=== PATIENT | male | born 1995 | race African-American/Black ===

== ENCOUNTER 2024-10-24 15:31 | Emergency (ER) | payer OTHER ==
[~2024-10-24] VITALS: Ht 172.7 cm; Wt 73.9 kg
--- NOTE | 2024-10-24 17:36 | HMCIMG ---
LEFT ELBOW RADIOGRAPHS - 3 VIEWS INDICATION: Pain COMPARISON: None FINDINGS: AP, lateral, and oblique views. Nondisplaced transverse radial neck impaction fracture. No significant joint effusion is present. No radiopaque foreign body noted. IMPRESSION: Nondisplaced transverse radial neck impaction fracture.
--- NOTE | 2024-10-24 17:36 | HMCIMG ---
LEFT WRIST RADIOGRAPHS - 3 VIEWS INDICATION: Pain COMPARISON: None FINDINGS: AP, lateral, and oblique views. No evidence for acute fracture or subluxation. Scaphoid bone is intact. Ulnar variance is within normal limits. Carpal alignment is well maintained. No radiopaque foreign body noted. IMPRESSION: No evidence for fracture or dislocation.
--- NOTE | 2024-10-24 18:39 | ERN ---
General Chief Complaint: Arm Swelling/Redness Stated Complaint: POSSIBLE BROKEN FOREARM Time Seen by MD: 15:40 Source: patient History of Present Illness Initial Comments PATIENT IS A 28-YEAR-OLD MALE COMING IN TO BE EVALUATED FOR ARM PAIN. PATIENT STATES THAT HE FELL DOWN EARLIER TODAY WAS DIAGNOSED WITH A RADIAL AND ULNAR FRACTURE AND SENT IN FOR FURTHER EVALUATION. Allergies: Coded Allergies: No Known Allergies (Unverified Allergy, Unknown, 10/24/24) Past Medical History Past Medical History: Asthma Past Surgical History: Appendectomy, Other Surgical History Other: ACL ROS Dictation CONSTITUTIONAL: NO CHILLS, NO FEVER, NO WEAKNESS, NO DIAPHORESIS, NO MALAISE. HEAD/FACE: NO SIGNS OF TRAUMA. EENT: NO EYE PAIN, NO BLURRED VISION, NO TEARING, NO DOUBLE VISION, NO EAR PAIN, NO EAR DISCHARGE, NO NOSE PAIN, NO NASAL CONGESTION, NO THROAT PAIN, NO THROAT SWELLING, NO MOUTH PAIN. RESPIRATORY: NO COUGH, NO ORTHOPNEA, NO SOB, NO STRIDOR, NO WHEEZING. CARDIOVASCULAR: NO CHEST PAIN, NO EDEMA, NO PALPITATIONS, NO SYNCOPE. GASTROINTESTINAL/ABDOMINAL: NO ABDOMINAL PAIN, NO CONSTIPATION, NO DIARRHEA, NO NAUSEA, NO VOMITING. GENITOURINARY: NO ABNORMAL DISCHARGE, NO DYSURIA, NO FREQUENT URINATION, NO HEMATURIA. NO COMPLAINTS OF PAIN IN THE GENITALS. MUSCULOSKELETAL: NO BACK PAIN, NO GOUT, NO JOINT PAIN, NO JOINT SWELLING, NO MUSCLE PAIN, NO MUSCLE STIFFNESS, NO NECK PAIN. INTEGUMENTARY: NO CHANGE IN COLOR, NO CHANGE IN HAIR/NAILS, NO DRYNESS, NO LESION, NO LUMPS, NO RASH. NEUROLOGICAL/PSYCH: NO ANXIETY, NOT DEPRESSED, NO EMOTIONAL PROBLEM, NO HEADACHE, NO NUMBNESS, NO PRE-EXISTING DEFICIT, NO HISTORY OF SEIZURES, NO TREMORS, NO WEAKNESS. HEMATOLOGIC/LYMPHATIC: NOT ANEMIC, NO HISTORY OF BLOOD CLOTS, NO APPARENT BLEEDING, NO BRUISING, GLANDS NOT SWOLLEN. ALL SYSTEMS NEGATIVE, EXCEPT NOTED. Physical Exam Physical Exam Dictation VITAL SIGNS: REVIEWED. GENERAL APPEARANCE: ALERT, ORIENTED X3, NO ACUTE DISTRESS, OBESE. HEAD AND FACE: NON-TRAUMATIC. EYES: PERRL, PINK CONJUNCTIVAS, EYELID NO TRAUMA, ANTERIOR CHAMBER CLEAR. EARS: PINNAS INTACT AND NO SIGNS OF TRAUMA OR ERYTHEMA. EAR CANALS CLEAR AND NO DISCHARGE. TMS NO ERYTHEMA. NOSE: NO DISCHARGE, NO BLEEDING. OROPHARYNX: MOUTH NORMAL, TEETH NO CARIES, TONGUE PINK. PHARYNX CLEAR, NO ERYTHEMA. TONSILS NO EXUDATES, NO ABSCESSES NOTED. MUCOUS MEMBRANE MOIST. NECK: SUPPLE, NON-TENDER, NO THYROMEGALY, NO MASSES, NO JVD, NO BRUITS. BREAST: DEFERRED. CHEST: NO TENDERNESS, NO CREPITUS, NO PARADOXICAL MOVEMENT, NO RETRACTIONS. LUNGS: CLEAR, WELL-VENTILATED, SYMMETRIC, NO RALES, NO WHEEZING, NO RHONCHI, NO STRIDOR, GOOD BREATH SOUNDS BILATERALLY. HEART: REGULAR RATE, REGULAR RHYTHM, NO MURMUR, NO GALLOPS. VASCULAR: NO PERIPHERAL EDEMA. ABDOMEN: SOFT, POSITIVE BOWEL SOUNDS, NONDISTENDED, NO GUARDING, NONTENDER, NO REBOUND, NO MASSES NO HEPATOMEGALY, NO SPLENOMEGALY, NO CARLIN'S SIGN, NO HERNIAS. RECTAL: DEFERRED. GENITAL: DEFERRED. NEUROLOGICAL: NORMAL SPEECH, GROSS MOTOR FUNCTION INTACT, GROSS SENSORY FUNCTION INTACT. MUSCULOSKELETAL: NECK NONTENDER, FULL RANGE OF MOTION, BACK NONTENDER, FULL RANGE OF MOTION. EXTREMITIES: NONTENDER, FULL RANGE OF MOTION. SKIN: COLOR PINK, DRY, NO TURGOR, NO RASH, NO LACERATIONS, NO ABRASIONS, NO CONTUSIONS. LYMPHATICS: DEFERRED. Results Laboratory and Microbiology Labs Reviewed?: Yes EKG/XRAY/US/CT/MRI X-RAY Comment IMAGING REPORT Signed PATIENT: NAYELI CRUZ MR#: [id number] : 1995 SEX: M AGE: 28 LOCATION: [facility] ORDER 1645 STATUS: [facility] REPORT#: [id number] SERVICE 1644 REASON: FALL ORDERING PHYSICIAN: ARLEEN CARDOSO MD PROCEDURE: WRST 3V LT - WRIST COMP 3+VWS LT LEFT WRIST RADIOGRAPHS - 3 VIEWS INDICATION: Pain COMPARISON: None FINDINGS: AP, lateral, and oblique views. No evidence for acute fracture or subluxation. Scaphoid bone is intact. Ulnar variance is within normal limits. Carpal alignment is well maintained. No radiopaque foreign body noted. IMPRESSION: No evidence for fracture or dislocation. DICTATED BY: SANTA KANG MD DATE: 10/24/24 243 ELECTRONICALLY SIGNED BY: SANTA KANG MD DATE: 10/24/241735 IMAGING REPORT Signed PATIENT: NAYELI CRUZ MR#: [id number] : 1995 SEX: M AGE: 28 LOCATION: [facility] ORDER 44 STATUS: REG ER REPORT#: [id number] SERVICE 164 REASON: FALL ORDERING PHYSICIAN: ARLEEN CARDOSO MD PROCEDURE: ELB3VW LT - ELBOW COMP 3+VWS LT LEFT ELBOW RADIOGRAPHS - 3 VIEWS INDICATION: Pain COMPARISON: None FINDINGS: AP, lateral, and oblique views. Nondisplaced transverse radial neck impaction fracture. No significant joint effusion is present. No radiopaque foreign body noted. IMPRESSION: Nondisplaced transverse radial neck impaction fracture. DICTATED BY: SANTA KANG MD DATE: 10/24/241732 ELECTRONICALLY SIGNED BY: SANTA KANG MD DATE: 10/24/241735 MDM MDM: DIFFERENTIAL DIAGNOSIS: TRANSVERSE NECK FRACTURE OF THE RADIUS, RADIUS FRACTURE, IMPACTED RADIAL FRACTURE, RATIONALE: TESTS CONSIDERED AND ORDERED SECONDARY TO SHARED DECISION MAKING INCLUDE: PREVIOUS OUTSIDE RECORDS REVIEWED: OLD ER VISITS. PATIENT IS A 28-YEAR-OLD MALE COMING IN TO BE EVALUATED FOR ARM PAIN X-RAY DISCLOSE AN IMPACTED FRACTURE OF THE RADIAL HEAD. POSTERIOR SPLINT WAS PLACED ALONG WITH A SLING PATIENT WILL BE DISCHARGED IN STABLE CONDITION. ED Course Orders Procedure Category Date Status Time Elbow Comp 3+Vws Lt RAD 10/24/24 Resulted 16:44 Wrist Comp 3+Vws Lt RAD 10/24/24 Resulted 16:44 Forearm 2vws Lt RAD 10/24/24 Logged 17:52 *Nursing CPOE 10/24/24 Transmitted Communication: 18:48 Ketorolac 60mg/2ml PHA 10/24/24 In Process (Toradol 60mg/2ml) 19:00 Current Medications Medications (Trade) Dose Ordered Sig/Delma Route PRN Reason Start Time Stop Time Status Last Admin Dose Admin Ketorolac Tromethamine (toRADol 60MG/ 2ML) 60 mg ONCE IM 10/24/24 19:00 10/24/24 23:00 Vital Signs Date Time Temp Pulse Resp B/P (MAP) Pulse Ox O2 Delivery O2 Flow Rate FiO2 10/24/24 16:51 98.2 84 16 121/72 97 Room Air* 0 21 10/24/24 15:38 98.2 84 16 121/72 97 Room Air 0 DX & DISP Disposition: Discharge Departure Impression: Primary Impression: Radial fracture Condition: Stable Additional Instructions: FOLLOW-UP WITH PRIMARY CARE PROVIDER IN 1 TO 2 DAYS. TAKE MEDICATIONS DIRECTED HERE IN THE EMERGENCY ROOM. OKAY TO CONTINUE HOME MEDICATIONS UNLESS OTHERWISE DISCUSSED DURING YOUR VISIT IN THE EMERGENCY ROOM TODAY. RETURN TO YOUR NEAREST EMERGENCY ROOM IF SYMPTOMS WORSEN OR IF THERE IS NO IMPROVEMENT. CALL 911 IF YOU NEED IMMEDIATE ASSISTANCE. TAKE TYLENOL NPOF-[id number]-[id number] NEEDED AND IF NO CONTRAINDICATIONS ARE PRESENT. INCREASE ORAL HYDRATION. A WOUND CULTURE OR URINE CULTURE WAS ORDERED HERE IN THE EMERGENCY ROOM DEPARTMENT PLEASE FOLLOW-UP WITH PRIMARY CARE PROVIDER AND ADVISE THEM TO GET REPEAT PORTS FROM OUR FACILITY. IF YOU HAD ANY KIERA WRAP/SPLINTS THAT WERE APPLIED HERE, PLEASE DO NOT REMOVE THEM UNTIL YOU SEE YOUR PRIMARY CARE OR SPECIALTY. REFERRALS: Referrals: SELF,REFERRAL (PCP) BINH MELGAR Time of Disposition: 19:02 ARLEEN CARDOSO MD October 24, 2024 18:39
[2024-10-24] MEDS: ketOROlac 60 MG VIAL (30MG/ML) IM SCH (19:01)
[2024-10-24 19:13] VITALS: BP 128/78; PULSE 80; RESP 16; TEMP 98.2; O2SAT 97
== END 2024-10-24 19:13 | disposition home or self-care (01) ==
LOC: EDH 15:31
DX: S52.135A Nondisplaced fracture of neck of left radius, initial encounter for closed fracture (principal); J45.909 Unspecified asthma, uncomplicated; Z90.49 Acquired absence of other specified parts of digestive tract; W18.39XA Other fall on same level, initial encounter; Y93.89 Activity, other specified; Y92.89 Other specified places as the place of occurrence of the external cause; Y99.8 Other external cause status
CPT/HCPCS: 99284; 73080; 73110; 96372; J1885